=== PATIENT | female | born 1980 | race Caucasian/White ===

== ENCOUNTER 2017-08-12 23:37 | Emergency (ER) | payer MEDICAID ==
[~2017-08-12] VITALS: Ht 160 cm; Wt 62.7 kg
[~2017-08-12 23:37] MED LIST: HYDR-3965 PO; PENI500T2 PO
[2017-08-13] MEDS ORDERED: CLIN300C3 PO (00:35)
[2017-08-13] MEDS ORDERED: IBUP-1984 PO (00:35)
[2017-08-13 00:45] VITALS: BP 134/88
== END 2017-08-13 00:49 | disposition home or self-care (01) ==
LOC: ER 23:38
DX: S60.552A Superficial foreign body of left hand, initial encounter (principal); Z88.2 Allergy status to sulfonamides; Z90.49 Acquired absence of other specified parts of digestive tract; Z79.899 Other long term (current) drug therapy; W45.8XXA Other foreign body or object entering through skin, initial encounter; Y93.89 Activity, other specified; Y92.89 Other specified places as the place of occurrence of the external cause; Y99.8 Other external cause status
CPT/HCPCS: 99284

== ENCOUNTER 2018-04-02 08:40 | Emergency (ER) | payer MEDICAID ==
[~2018-04-02] VITALS: Ht 160 cm; Wt 65.0 kg
[2018-04-02] MEDS ORDERED: LIDOcaine 1.5% w/epinephrine 1:200,000 5ml ampul IJ ONE (09:00)
[2018-04-02] MEDS ORDERED: TETanus/Pertussis (Acell)/Diphther VAC/PF (Tdap-Adult) 0.5ml syringe IM ONE (09:00)
[2018-04-02 09:04] VITALS: BP 159/101
[2018-04-02] MEDS ORDERED: LIDOcaine 1% w/EPI 1:100,000 30ml vial (MDV) IJ ONE (09:10)
[2018-04-02] MEDS ORDERED: ceFAZolin 1gm IM kit IM ONE (09:35)
[2018-04-02] MEDS ORDERED: ACET-3067 PO (10:17)
[2018-04-02] MEDS ORDERED: CEPH500C5 PO (10:17)
== END 2018-04-02 11:15 | disposition home or self-care (01) ==
LOC: ER 08:41
DX: S62.522B Displaced fracture of distal phalanx of left thumb, initial encounter for open fracture (principal); Z90.49 Acquired absence of other specified parts of digestive tract; Z98.890 Other specified postprocedural states; Z98.51 Tubal ligation status; Z88.2 Allergy status to sulfonamides; W23.0XXA Caught, crushed, jammed, or pinched between moving objects, initial encounter; Y93.89 Activity, other specified; Y92.89 Other specified places as the place of occurrence of the external cause; Y99.9 Unspecified external cause status
CPT/HCPCS: 29130; 73140; 90471; 90715; 96372; 99284; J0690; J3490

== ENCOUNTER 2018-04-11 09:42 | Outpatient (CLI) | payer MEDICAID ==
[2018-04-11 09:39] VITALS: BP 150/105
[~2018-04-11 09:42] MED LIST changes: +CEPH500C5 PO
== END 2018-04-11 10:20 | disposition home or self-care (01) ==
LOC: ORTHO 09:42
PROVIDERS: ATTEND Nurse Practitioner Family
DX: S61.012A Laceration without foreign body of left thumb without damage to nail, initial encounter (principal); S62.522A Displaced fracture of distal phalanx of left thumb, initial encounter for closed fracture; F17.210 Nicotine dependence, cigarettes, uncomplicated; Z88.2 Allergy status to sulfonamides; W18.49XA Other slipping, tripping and stumbling without falling, initial encounter; Y93.89 Activity, other specified; Y92.89 Other specified places as the place of occurrence of the external cause; Y99.8 Other external cause status
CPT/HCPCS: 99214

== ENCOUNTER 2018-05-18 10:25 | Outpatient (CLI) | payer MEDICAID ==
[2018-05-18 10:25] VITALS: BP 154/98
[~2018-05-18 10:25] MED LIST changes: -CEPH500C5 PO
== END 2018-05-18 10:57 | disposition home or self-care (01) ==
LOC: ORTHO 10:25
PROVIDERS: ATTEND Nurse Practitioner Family
DX: S62.522D Displaced fracture of distal phalanx of left thumb, subsequent encounter for fracture with routine healing (principal); S61.112D Laceration without foreign body of left thumb with damage to nail, subsequent encounter; M79.89 Other specified soft tissue disorders; F17.210 Nicotine dependence, cigarettes, uncomplicated; Z88.2 Allergy status to sulfonamides; W01.0XXD Fall on same level from slipping, tripping and stumbling without subsequent striking against object, subsequent encounter
CPT/HCPCS: 73140; 99213

== ENCOUNTER 2019-07-21 10:17 | Emergency (ER) | payer MEDICAID ==
[~2019-07-21] VITALS: Ht 160 cm; Wt 77.3 kg
--- NOTE | 2019-07-21 11:57 | NUR ---
Dr Bhandari at bedside.
[2019-07-21] MEDS ORDERED: amox tr/potassium clavulanate 875/125mg TAB PO ONE (12:10)
[2019-07-21] MEDS ORDERED: AMOX-117 PO (12:10)
[2019-07-21] MEDS ORDERED: IBUP-1984 PO (12:10)
[2019-07-21 12:34] VITALS: BP 145/88
== END 2019-07-21 12:36 | disposition home or self-care (01) ==
LOC: ER 10:20
DX: K02.9 Dental caries, unspecified (principal); Z56.0 Unemployment, unspecified; Z90.49 Acquired absence of other specified parts of digestive tract; Z98.890 Other specified postprocedural states; Z98.51 Tubal ligation status; Z88.2 Allergy status to sulfonamides
CPT/HCPCS: 99283

== ENCOUNTER 2019-07-23 11:36 | Emergency (ER) | payer MEDICAID ==
[~2019-07-23] VITALS: Ht 160 cm; Wt 81.6 kg
[~2019-07-23 11:36] MED LIST changes: +AMOX-117 PO; +IBUP-1984 PO
[2019-07-23 11:51] VITALS: BP 125/71
[2019-07-23] MEDS ORDERED: CLIN-90 PO (12:39)
[2019-07-23] MEDS ORDERED: clindamycin 150mg capsule PO ONE (12:40)
[2019-07-23] MEDS ORDERED: acetaminophen 325mg tablet PO ONE (12:40)
== END 2019-07-23 12:58 | disposition home or self-care (01) ==
LOC: ER 11:37
DX: K08.89 Other specified disorders of teeth and supporting structures (principal); Z90.49 Acquired absence of other specified parts of digestive tract; Z98.51 Tubal ligation status; Z98.890 Other specified postprocedural states; Z72.89 Other problems related to lifestyle; Z56.0 Unemployment, unspecified; Z88.2 Allergy status to sulfonamides; Z79.899 Other long term (current) drug therapy
CPT/HCPCS: 99283

== ENCOUNTER 2021-01-30 15:01 | Emergency (ER) | payer MEDICAID ==
[~2021-01-30] VITALS: Ht 160 cm; Wt 70.0 kg
[~2021-01-30 15:01] MED LIST changes: -AMOX-117 PO; +CLIN-97 PO
[2021-01-30 15:25] VITALS: BP 137/90
== END 2021-01-30 15:37 | disposition left against medical advice (07) ==
LOC: ER 15:02
DX: R05 Cough (principal); R07.89 Other chest pain; Z53.21 Procedure and treatment not carried out due to patient leaving prior to being seen by health care provider